=== PATIENT | female | born 1945 | race Caucasian/White ===

== ENCOUNTER 2019-03-22 11:54 | Inpatient (IN) | payer MEDICARE, OTHER ==
[~2019-03-22] VITALS: Ht 147.3 cm; Wt 65.8 kg
[2019-03-22] VITALS (16 sets, daily range): BP systolic 86–142; BP diastolic 31–94
--- NOTE | 2019-03-22 12:13 | ED Chest Pain ---
General Chief Complaint: Chest Pain Stated Complaint: CHEST PAIN Source: patient, EMS Exam Limitations: no limitations History of Present Illness Date Seen by Provider: Mar 22, 2019 Time Seen by Provider: 11:59 Initial Comments Patient presents to ER by EMS from home with chief complaint she just sat down to eat lunch and started having some pressure across her chest. Worse with movement better with lying down. No shortness of breath cough fever or chills. No previous history of coronary disease although years ago Dr. HERRING her primary care doctor sent her to a accounting systems analyst in [place] although she does not remember what it was about and has never had to follow-up. She's having no nausea sweats. She describes the pain is so someone standing on the middle of her chest. It is not radiating anywhere. She has had a hysterectomy and no other abdominal surgeries. She has high blood pressure, smokes and hypercholesterolemia but denies diabetes. On the way to the ER she belched several times and said that that would relieve some of the pressure in her chest. Last night she had a lot of reflux and gas after eating at [employer]. Allergies and Home Medications Allergies Coded Allergies: iodine (Verified Allergy, Unknown, hives, 03/22/19) Patient Home Medication List Home Medication List Reviewed: Yes Review of Systems Review of Systems Constitutional: No chills, No diaphoresis EENTM: No Blurred Vision, No Double Vision Respiratory: Denies Cough, Denies Shortness of Air Cardiovascular: See HPI, Chest Pain; Denies Edema, Denies Palpitations, Denies Syncope Gastrointestinal: See HPI; Denies Abdomen Distended; Abdominal Pain; Denies Constipated, Denies Diarrhea, Denies Nausea Genitourinary: Denies Burning, Denies Discharge Musculoskeletal: No back pain, No joint pain Skin: No pruritus, No rash Psychiatric/Neurological: Denies Headache, Denies Numbness, Denies Paresthesia Past Mnizaav-Tbytvr-Bsarjt Hx Patient Social History Alcohol Use: Denies Use Recreational Drug Use: No Smoking Status: Current Everyday Smoker Type Used: Cigarettes Physical Exam Vital Signs Vital Signs - First Documented 03/22/19 11:55 Temp 97.9 Pulse 84 Resp 20 B/P (MAP) 148/40 (76) Pulse Ox 95 Capillary Refill : Height, Weight, BMI Height: '" Weight: lbs. oz. kg; BMI Method: General Appearance: WD/WN, Anxious, Mild Distress HEENT: PERRL/EOMI, Pharynx Normal, Moist Mucous Membranes Neck: Full Range of Motion, Normal Inspection Respiratory: Chest Non Tender, Lungs Clear, Normal Breath Sounds, No Accessory Muscle Use, No Respiratory Distress Cardiovascular: Regular Rate, Rhythm, No Edema, Normal Peripheral Pulses Gastrointestinal: Normal Bowel Sounds, Soft, Tenderness (tenderness over the right upper quadrant), Other (negative for Colon sign, McBurney's point tenderness or rebound tenderness) Extremity: Normal Capillary Refill, Normal Inspection, No Pedal Edema Neurologic/Psychiatric: Alert, Oriented x3 Progress/Results/Core Measures Results/Orders Lab Results Laboratory Tests Test 03/22/19 12:26 Range/Units White Blood Count 9.7 4.3-11.0 10^3/uL Red Blood Count 3.81 L 4.35-5.85 10^6/uL Hemoglobin 12.3 11.5-16.0 G/DL Hematocrit 37 35-52 % Mean Corpuscular Volume 98 80-99 FL Mean Corpuscular Hemoglobin 32 25-34 PG Mean Corpuscular Hemoglobin Concent 33 32-36 G/DL Red Cell Distribution Width 14.0 10.0-14.5 % Platelet Count 215 130-400 10^3/uL Mean Platelet Volume 9.0 7.4-10.4 FL Neutrophils (%) (Auto) 69 42-75 % Lymphocytes (%) (Auto) 22 12-44 % Monocytes (%) (Auto) 6 0-12 % Eosinophils (%) (Auto) 2 0-10 % Basophils (%) (Auto) 1 0-10 % Neutrophils # (Auto) 6.7 1.8-7.8 X 10^3 Lymphocytes # (Auto) 2.2 1.0-4.0 X 10^3 Monocytes # (Auto) 0.6 0.0-1.0 X 10^3 Eosinophils # (Auto) 0.2 0.0-0.3 10^3/uL Basophils # (Auto) 0.1 0.0-0.1 10^3/uL Prothrombin Time 12.8 12.2-14.7 SEC INR Comment 0.9 0.8-1.4 Activated Partial Thromboplast Time 28 24-35 SEC Sodium Level 140 135-145 MMOL/L Potassium Level 3.7 3.6-5.0 MMOL/L Chloride Level 97 L 98-107 MMOL/L Carbon Dioxide Level 25 21-32 MMOL/L Anion Gap 18 H 5-14 MMOL/L Blood Urea Nitrogen 16 7-18 MG/DL Creatinine 0.90 0.60-1.30 MG/DL Estimat Glomerular Filtration Rate > 60 BUN/Creatinine Ratio 18 Glucose Level 165 H 70-105 MG/DL Calcium Level 10.6 H 8.5-10.1 MG/DL Corrected Calcium 10.4 H 8.5-10.1 MG/DL Magnesium Level 1.4 L 1.6-2.4 MG/DL Total Bilirubin 0.7 0.1-1.0 MG/DL Aspartate Amino Transf (AST/SGOT) 51 H 5-34 U/L Alanine Aminotransferase (ALT/SGPT) 29 0-55 U/L Alkaline Phosphatase 158 H 40-136 U/L Myoglobin < 21.0 10.0-92.0 NG/ML Troponin I < 0.30 <0.30 NG/ML Pro-B-Type Natriuretic Peptide 127.5 H <75.0 PG/ML Total Protein 7.0 6.4-8.2 GM/DL Albumin 4.3 3.2-4.5 GM/DL Lipase 34 8-78 U/L My Orders Orders - HALEIGH GUERRERO Cbc With Automated Diff (03/22/19 12:10) Magnesium (03/22/19 12:10) Chest 1 View Ap/Pa Only (03/22/19 12:10) Ekg Tracing (03/22/19 12:10) Comprehensive Metabolic Panel (03/22/19 12:10) Myoglobin Serum (03/22/19 12:10) Protime With Inr (03/22/19 12:10) Partial Thromboplastin Time (03/22/19 12:10) O2 (03/22/19 12:10) Monitor-Rhythm Ecg Trace Only (03/22/19 12:10) Lipid Panel (03/23/19 06:00) Aspirin Chewable Tablet (Baby Aspirin Ch (03/22/19 12:15) Ed Iv/Invasive Line Start (03/22/19 12:10) Lipase (03/22/19 12:10) Troponin I (03/22/19 12:10) Probnp Fs (03/22/19 12:10) Morphine Injection (Morphine Injection (03/22/19 12:15) Ct Abdomen/Pelvis Wo (03/22/19 12:10) Chest Pa/Lat (2 View) (03/22/19 13:03) Medications Given in ED Current Medications Medications Dose Ordered Sig/Bernard Route Start Time Stop Time Status Last Admin Dose Admin Aspirin 324 mg ONCE ONCE PO 03/22/19 12:15 03/22/19 12:16 DC 03/22/19 12:35 324 MG Morphine Sulfate 2 mg ONCE ONCE IVP 03/22/19 12:15 03/22/19 12:16 DC 03/22/19 12:35 2 MG Vital Signs/I&O 03/22/19 11:55 Temp 97.9 Pulse 84 Resp 20 B/P (MAP) 148/40 (76) Pulse Ox 95 Progress Progress Note : Time: 13:10 Progress Note Ultrasound is not available. Her pain seems to be associated more the right upper quadrant abdomen. We'll give her some pantoprazole and 2 mg morphine. The morphine helped her tremendously and she's no longer in pain. Repeat x-ray two-view based on the shadow seen. She has a lot of gallstone seen on the CT scan without a lot of pericholecystic fluid however because of her iodine allergy we were not able to do a contrasted study. We have discussed follow-up with general surgery. If her troponin is negative she still has a HEART score of 4 points. High risk; 1265% 30-day MACE. Admit to hospital or observation. Further testing indicated. Initial ECG Impression Date: Mar 22, 2019 Initial ECG Impression Time: 11:55 Initial ECG Rate: 73 Initial ECG Rhythm: Normal Sinus Initial ECG Intervals: Normal Initial ECG Impression: Normal Initial ECG Comparisson: No Previous ECG Available Comment Normal sinus rhythm without ST elevation or depression. Diagnostic Imaging Diagonstic Imaging: Xray Plain Films/CT/US/NM/MRI: chest (1v) Comments NAME: CRISTIANAANNA A [facility] REC#: [id number] PT STATUS: REG ER : 1945 PHYSICIAN: HALEIGH GUERRERO MD ADMIT DATE: 03/22/19/ER FS Draft Date of Exam:03/22/19 CHEST 1 VIEW AP/PA ONLY Erect AP chest at 12:12. Indication: Chest pain. There are no prior studies available for comparison. The heart size is within normal limits. The lungs are generally clear. There is no evidence for failure, pneumonia or for pleural effusion. However there is slight increased density in the right suprahilar region. This finding is more likely due to superimposition of pulmonary vessels in this area than to a parenchymal abnormality. Even so, unless there are previous exam available to demonstrate this finding is stable, then followup PA and lateral chest would be recommended for additional study. The mediastinum is not widened. The osseous structures are intact. Impression: There is no evidence for an acute cardiopulmonary abnormality. The area of increased density in the right suprahilar region may well be secondary to superimposition as opposed to a parenchymal abnormality. Recommendations as above. Dictated on workstation # [id number] Dict: 03/22/19 1241 Trans: 03/22/19 1254 [facility] [id number] Interpreted by: SONALI MALIK MD Electronically signed by: Reviewed: Reviewed by Fl Diagonstic Imaging: Xray Plain Films/CT/US/NM/MRI: chest (2v) Comments NAME: ANNA ZENDEJAS [facility] REC#: [id number] PT STATUS: REG ER : 1945 PHYSICIAN: HALEIGH GUERRERO MD ADMIT DATE: 03/22/19/ER FS Signed Date of Exam:03/22/19 CHEST PA/LAT (2 VIEW) PATIENT HISTORY: Chest pain. TECHNIQUE: Two views of the chest. COMPARISON: 03/22/2019. FINDINGS: The lung volumes are normal. No focal consolidation is seen. Previously noted opacity in the right suprahilar region is not visualized on the repeat exam, likely representing superimposed soft tissues. No large pleural effusion or pneumothorax is seen. The cardiomediastinal silhouette is normal in size and contour. There is calcified aortic atherosclerotic plaque. No acute osseous abnormality is seen. IMPRESSION: 1. No acute pleuroparenchymal process. Previously noted opacity likely represented superimposed soft tissues. Dictated by: Dictated on workstation # [id number] Dict: 03/22/19 1320 Trans: 03/22/19 1328 [facility] [id number] Interpreted by: FAIZAN MONTOYA DO Electronically signed by: FAIZAN MONTOYA DO 03/22/19 1328 Reviewed: Reviewed by Me Diagonstic Imaging: CT (without IV contrast) Plain Films/CT/US/NM/MRI: abdomen, pelvis Comments NAME: ANNA ZENDEJAS [facility] REC#: [id number] PT STATUS: REG ER : 1945 PHYSICIAN: HALEIGH GUERRERO MD ADMIT DATE: 03/22/19/ER FS Signed Date of Exam:03/22/19 CT ABDOMEN/PELVIS WO PROCEDURE: CT abdomen and pelvis without contrast. TECHNIQUE: Multiple contiguous axial images were obtained through the abdomen and pelvis without the use of intravenous contrast. Auto Exposure Controls were utilized during the CT exam to meet ALARA standards for radiation dose reduction. INDICATION: Sudden epigastric pain after a meal. No discomfort at this time. COMPARISON: None. FINDINGS: The heart is unremarkable. The included lung bases are clear. Multiple gallstones are visualized within the gallbladder lumen. There is mild thickening of the gallbladder wall. No pericholecystic fluid is seen. There is dilatation of the common bile duct measuring 1.0 cm at the roberto hepatis. A radiopaque focus is seen in the distal common bile duct measuring 0.6 cm, likely representing choledocholithiasis. There is proximal intrahepatic biliary dilatation. Multiple renal cysts are visualized bilaterally. No evidence of hydronephrosis or obstruction of renal calculi. The spleen, pancreas, and adrenal glands have a normal noncontrast CT appearance. There is no pathologically enlarged mesenteric or retroperitoneal adenopathy. The bowel loops are nondilated. Scattered diverticuli are seen in the colon without evidence of acute diverticulitis. There is no free fluid or free air. The osseous structures are age-appropriate. There is calcified aortic and iliac atherosclerotic plaque. The bladder has a normal appearance. There is no free air, loculated collection, or adenopathy in the pelvis. IMPRESSION: 1. Cholelithiasis and choledocholithiasis with dilatation of the main common bile duct and prominence of the proximal intrahepatic biliary ducts. Recommend correlation with patient's symptoms and physical exam for acute cholecystitis and surgical consultation. Dictated by: Dictated on workstation # [id number] Dict: 03/22/19 1312 Trans: 03/22/19 1328 [facility] [id number] Interpreted by: FAIZAN MONTOYA DO Electronically signed by: FAIZAN MONTOYA DO 03/22/19 1328 Reviewed: Reviewed by Me Departure Communication (Admissions) Time/Spoke to Admitting Phy: 13:48 Dr Anaya; discussed case lab imaging EKG and he agrees with some Zosyn and admitting the patient. Time/Spoke to Consulting Phy: 13:39 Discussed the case with general surgery, Dr. Roberts and we discussed ERCP first versus surgery. Her pain is gone after 2 mg morphine and her bilirubin is 0.7. He thinks it would be reasonable to do the cholecystectomy today and then set her up for ERCP following. Impression Primary Impression: Choledocholithiasis with acute cholecystitis with obstruction Additional Impression: Chest pressure Disposition: ADMITTED INPATIENT Condition: Stable Admissions Decision to Admit Reason: Admit from ER (General) Decision to Admit/Date: Mar 22, 2019 Time/Decision to Admit Time: 13:40 Departure-Patient Inst. Referrals: JESSICA HERRING DO (PCP/Family) Primary Care Physician HALEIGH GUERRERO Mar 22, 2019 12:13
[2019-03-22] MEDS ORDERED: morphine INJ 10 MG/ML 1ML (SYR OR VIAL) IVP ONE (12:15)
[2019-03-22] MEDS ORDERED: ASPIRIN 81 MG CHEW (CHILDREN'S ASA) PO ONE (12:15)
[2019-03-22 12:36] LABS: BASOPHILS # (AUTO) 0.1 10^3/uL (0.0-0.1); BASOPHILS % (AUTO) 1 % (0-10); EOSINOPHILS # (AUTO) 0.2 10^3/uL (0.0-0.3); EOSINOPHILS % (AUTO) 2 % (0-10); HEMATOCRIT 37 % (35-52); HEMOGLOBIN 12.3 G/DL (11.5-16.0); LYMPHOCYTES # (AUTO) 2.2 X 10^3 (1.0-4.0); LYMPHOCYTES % (AUTO) 22 % (12-44); MEAN CORPUSCULAR HEMOGLOBIN 32 PG (25-34); MEAN CORPUSCULAR HGB CONC 33 G/DL (32-36); MEAN CORPUSCULAR VOLUME 98 FL (80-99); MONOCYTES # (AUTO) 0.6 X 10^3 (0.0-1.0); MONOCYTES % (AUTO) 6 % (0-12); NEUTROPHILS # (AUTO) 6.7 X 10^3 (1.8-7.8); NEUTROPHILS % (AUTO) 69 % (42-75); PLATELET COUNT 215 10^3/uL (130-400); WHITE BLOOD COUNT 9.7 10^3/uL (4.3-11.0)
--- NOTE | 2019-03-22 12:55 | Diagnostic Imaging Report ---
Erect AP chest at 12:12. Indication: Chest pain. There are no prior studies available for comparison. The heart size is within normal limits. The lungs are generally clear. There is no evidence for failure, pneumonia or for pleural effusion. However there is slight increased density in the right suprahilar region. This finding is more likely due to superimposition of pulmonary vessels in this area than to a parenchymal abnormality. Even so, unless there are previous exam available to demonstrate this finding is stable, then followup PA and lateral chest would be recommended for additional study. The mediastinum is not widened. The osseous structures are intact. Impression: There is no evidence for an acute cardiopulmonary abnormality. The area of increased density in the right suprahilar region may well be secondary to superimposition as opposed to a parenchymal abnormality. Recommendations as above. Dictated by: Dictated on workstation # [id number]
[2019-03-22 13:02] LABS: INR 0.9 (0.8-1.4); PROTHROMBIN TIME PATIENT 12.8 SEC (12.2-14.7)
[2019-03-22 13:03] LABS: BILIRUBIN,TOTAL 0.7 MG/DL (0.1-1.0); BUN/CREATININE RATIO 18; CALCIUM 10.6 MG/DL (8.5-10.1); CARBON DIOXIDE 25 MMOL/L (21-32); CHLORIDE 97 MMOL/L (98-107); GFR ESTIMATED > 60; GLUCOSE 165 MG/DL (70-105); MAGNESIUM 1.4 MG/DL (1.6-2.4); POTASSIUM 3.7 MMOL/L (3.6-5.0); SODIUM 140 MMOL/L (135-145)
[2019-03-22 13:04] LABS: ALANINE AMINOTRANSFERASE 29 U/L (0-55); ALBUMIN 4.3 GM/DL (3.2-4.5); ALKALINE PHOSPHATASE 158 U/L (40-136); LIPASE 34 U/L (8-78)
--- NOTE | 2019-03-22 13:24 | Diagnostic Imaging Report ---
PROCEDURE: CT abdomen and pelvis without contrast. TECHNIQUE: Multiple contiguous axial images were obtained through the abdomen and pelvis without the use of intravenous contrast. Auto Exposure Controls were utilized during the CT exam to meet ALARA standards for radiation dose reduction. INDICATION: Sudden epigastric pain after a meal. No discomfort at this time. COMPARISON: None. FINDINGS: The heart is unremarkable. The included lung bases are clear. Multiple gallstones are visualized within the gallbladder lumen. There is mild thickening of the gallbladder wall. No pericholecystic fluid is seen. There is dilatation of the common bile duct measuring 1.0 cm at the roberto hepatis. A radiopaque focus is seen in the distal common bile duct measuring 0.6 cm, likely representing choledocholithiasis. There is proximal intrahepatic biliary dilatation. Multiple renal cysts are visualized bilaterally. No evidence of hydronephrosis or obstruction of renal calculi. The spleen, pancreas, and adrenal glands have a normal noncontrast CT appearance. There is no pathologically enlarged mesenteric or retroperitoneal adenopathy. The bowel loops are nondilated. Scattered diverticuli are seen in the colon without evidence of acute diverticulitis. There is no free fluid or free air. The osseous structures are age-appropriate. There is calcified aortic and iliac atherosclerotic plaque. The bladder has a normal appearance. There is no free air, loculated collection, or adenopathy in the pelvis. IMPRESSION: 1. Cholelithiasis and choledocholithiasis with dilatation of the main common bile duct and prominence of the proximal intrahepatic biliary ducts. Recommend correlation with patient's symptoms and physical exam for acute cholecystitis and surgical consultation. Dictated by: Dictated on workstation # [id number]
--- NOTE | 2019-03-22 13:26 | Diagnostic Imaging Report ---
PATIENT HISTORY: Chest pain. TECHNIQUE: Two views of the chest. COMPARISON: 03/22/2019. FINDINGS: The lung volumes are normal. No focal consolidation is seen. Previously noted opacity in the right suprahilar region is not visualized on the repeat exam, likely representing superimposed soft tissues. No large pleural effusion or pneumothorax is seen. The cardiomediastinal silhouette is normal in size and contour. There is calcified aortic atherosclerotic plaque. No acute osseous abnormality is seen. IMPRESSION: 1. No acute pleuroparenchymal process. Previously noted opacity likely represented superimposed soft tissues. Dictated by: Dictated on workstation # [id number]
[2019-03-22] MEDS ORDERED: PIPERACILLIN/TAZO 4.5 GM VIAL (ZOSYN) IV ONE ×2 (14:00→23:53)
[2019-03-22] MEDS ORDERED: NS (IVPB) 100 ML ONE ×2 (14:00→23:55)
[2019-03-22] MEDS ORDERED: PIPERACILLIN/TAZOBACTAM (BULK) 4.5 GM in NS (IVPB) 100 ML IV ONE (14:00)
[2019-03-22] MEDS ORDERED: PANTOPRAZOLE 40 MG (PROTONIX) VIAL IV ONE (14:15)
--- NOTE | 2019-03-22 14:48 | NUR ---
Received report from Marilynn CASAS ([facility])
--- NOTE | 2019-03-22 15:08 | NUR ---
patient transferred at this time to [facility] via private vehicle.
[2019-03-22] MEDS ORDERED: IOPAMIDOL 61% 30 ML (ISOVUE 300) VIAL IV ONE (15:56)
[2019-03-22] MEDS ORDERED: BUP/EPI 0.25% 1:200,000 (MARCAINE) 10 ML VIAL IJ ONE (15:56)
--- NOTE | 2019-03-22 16:00 | NUR ---
Pt arrived via private vehicle as a direct admit, pt is alert and oriented x 4, c/o upper abdominal pain with n/v that is intermittent. Pt arrived with a SL in R) hand, 20g. [employer] and Dr. Roberts here on arrival.
[2019-03-22] MEDS ORDERED: fentaNYL INJECTION 100 MCG/2 ML AMP ONE ×3 (16:07→18:05)
[2019-03-22] MEDS ORDERED: ONDANSETRON 4 MG/2 ML (SDV) Z0FRAN ONE ×2 (16:07→16:32)
[2019-03-22] MEDS ORDERED: LIDOCAINE PF 2% 5 ML (XYLOCAINE) VIAL ONE (16:07)
[2019-03-22] MEDS ORDERED: ROCURONIUM 10 MG/ML 5 ML SYRINGE IV ONE (16:07)
[2019-03-22] MEDS ORDERED: proPOfol 200 MG/20 ML (DIPRIVAN) VIAL IV ONE (16:07)
[2019-03-22] MEDS ORDERED: MIDAZOLAM 2 MG/2 ML (VERSED) VIAL ONE (16:08)
[2019-03-22] MEDS ORDERED: DEXAMETHASONE 10 MG/ML (DECADRON) 1 ML VIAL ONE (16:32)
[2019-03-22] MEDS ORDERED: GLYCOPYRROLATE 0.2 MG/ML (ROBINUL) 2 ML VIAL ONE (16:32)
[2019-03-22] MEDS ORDERED: NEOSTIGMINE 3 MG/3 ML VIAL ONE (16:32)
--- NOTE | 2019-03-22 16:36 | Consultation - Surgery ---
History of Present Illness History of Present Illness Patient Consulted On(rosalia/time) 03/22/19 16:31 Time Seen by Provider: 16:09 History of Present Illness Surgery asked to consult regarding Cholelithiasis/Cholecystitis with Choledochalithiasis. HPI per ED: Patient presents to ER by EMS from home with chief complaint she just sat down to eat lunch and started having some pressure across her chest. Worse with movement better with lying down. No shortness of breath cough fever or chills. No previous history of coronary disease although years ago Dr. 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 She's having no nausea sweats. She describes the pain is so someone standing on the middle of her chest. It is not radiating anywhere. She has had a hysterectomy and no other abdominal surgeries. She has high blood pressure, smo kes and hypercholesterolemia but denies diabetes. On the way to the ER she belched several times and said that that would relieve some of the pressure in her chest. Last night she had a lot of reflux and gas after eating at [employer]. When I spoke with pt she described a sharp pain under ribs "on both sides". She said her sister also had her GB out. Allergies and Home Medications Allergies Coded Allergies: iodine (Verified Allergy, Unknown, hives, 03/22/19) Patient Home Medication List Home Medication List Reviewed: Yes Past Ifcqhin-Vehjwg-Ivrroj Hx Patient Social History Alcohol Use: Denies Use Recreational Drug Use: No Smoking Status: Current Everyday Smoker Type Used: Cigarettes 2nd Hand Smoke Exposure: Yes Recent Foreign Travel: No Contact w/Someone Who Travel: No Recent Infectious Disease Expo: No Recent Hopitalizations: No Seasonal Allergies Seasonal Allergies: No Surgeries History of Surgeries: Yes Surgeries: Hysterectomy, Tonsillectomy Respiratory History of Respiratory Disorde: No Cardiovascular History of Cardiac Disorders: Yes Cardiac Disorders: High Cholesterol, Hypertension Neurological History of Neurological Disord: No Reproductive System : No Genitourinary History of Genitourinary Disor: No Gastrointestinal History of Gastrointestinal Di: No Musculoskeletal History of Musculoskeletal Dis: No Endocrine History of Endocrine Disorders: No HEENT History of HEENT Disorders: No Cancer History of Cancer: No Psychosocial History of Psychiatric Problem: No Integumentary History of Skin or Integumenta: No Family Medical History Significant Family History: Vascular Disease (Mother had "blood clot in heart"), Other Conditions/Hx (sister GB disease) Review of Systems-General Constitutional: No chills, No diaphoresis; weakness EENTM: No blurred vision, No double vision, No mouth pain, No mouth swelling, No epistaxis Respiratory: No cough, No dyspnea on exertion Cardiovascular: chest pain; No palpitations Gastrointestinal: abdominal pain (RUQ); No diarrhea; nausea; No vomiting Genitourinary: No dysuria, No frequency, No hematuria Musculoskeletal: joint pain, joint swelling, muscle pain, muscle stiffness Skin: No change in color, No change in hair/nails Psychiatric/Neurological: Denies Anxiety, Denies Depressed, Denies Seizure, Denies Tremors Other pt denies any hx of abnormal bleeding or bruising Physical Exam-General Problems Physical Exam Vital Signs Vital Signs - First Documented 03/22/19 03/22/19 11:55 16:14 Temp 97.9 Pulse 84 Resp 20 B/P (MAP) 148/40 (76) Pulse Ox 95 O2 Delivery Room Air Capillary Refill : Less Than 3 Seconds General Appearance: WD/WN, mild distress, thin Eyes: Bilateral Eye PERRL, Bilateral Eye EOMI HEENT: pharynx normal; No scleral icterus (R), No scleral icterus (L) Neck: non-tender, full range of motion, supple Respiratory: chest non-tender, lungs clear, normal breath sounds, no respiratory distress, no accessory muscle use Cardiovascular: regular rate, rhythm, no edema, no murmur Gastrointestinal: normal bowel sounds, soft, no organomegaly, no pulsatile mass, tenderness (RUQ with palpation), hernia (small umbilical) Back: no CVA tenderness, no vertebral tenderness Extremities: non-tender, no pedal edema, no calf tenderness 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, no motor/sensory deficits, alert, normal mood/affect, oriented x 3 Skin: normal color, warm/dry Lymphatic: no adenopathy (neck, axilla or groin) Data Review Labs Laboratory Tests 03/22/19 12:26: White Blood Count 9.7, Red Blood Count 3.81L, Hemoglobin 12.3, Hematocrit 37, Mean Corpuscular Volume 98, Mean Corpuscular Hemoglobin 32, Mean Corpuscular Hemoglobin Concent 33, Red Cell Distribution Width 14.0, Platelet Count 215, Mean Platelet Volume 9.0, Neutrophils (%) (Auto) 69, Lymphocytes (%) (Auto) 22, Monocytes (%) (Auto) 6, Eosinophils (%) (Auto) 2, Basophils (%) (Auto) 1, Neutrophils # (Auto) 6.7, Lymphocytes # (Auto) 2.2, Monocytes # (Auto) 0.6, Eosinophils # (Auto) 0.2, Basophils # (Auto) 0.1, Prothrombin Time 12.8, INR Comment 0.9, Activated Partial Thromboplast Time 28, Sodium Level 140, Potassium Level 3.7, Chloride Level 97L, Carbon Dioxide Level 25, Anion Gap 18H, Blood Urea Nitrogen 16, Creatinine 0.90, Estimat Glomerular Filtration Rate > 60, BUN/Creatinine Ratio 18, Glucose Level 165H, Calcium Level 10.6H, Corrected Calcium 10.4H, Magnesium Level 1.4L, Total Bilirubin 0.7, Aspartate Amino Transf (AST/SGOT) 51H, Alanine Aminotransferase (ALT/SGPT) 29, Alkaline Phosphatase 158H, Myoglobin < 21.0, Troponin I < 0.30, Pro-B-Type Natriuretic Peptide 127.5H , Total Protein 7.0, Albumin 4.3, Lipase 34 Assessment/Plan Assessment/Plan Assessment/Plan Acute on Chronic Cholecystitis with Cholelithiasis and Choledochalithiasis HTN Plan is to take pt to OR for Lap sabrina with IOC, may be able to push stone out or flush it out. She may be able to be sent for outpt ERCP, will depend on cholangiogram. Discussed risks and complications with pt not limited to pain, bleeding, infection, scar, damage to bowel or bile duct and need for further procedure. Will get consent, continue Zosyn as routine ABX, npo, IV fluids and pain control. EASTON HILL DO Mar 22, 2019 16:36
[2019-03-22] MEDS ORDERED: ACETAMINOPHEN 325 MG TABLET PO PRN (17:00)
[2019-03-22] MEDS ORDERED: POLYETHYLENE GLYCOL 17 GM (MIRALAX) PACK PO PRN (17:00)
[2019-03-22] MEDS ORDERED: ONDANSETRON 4 MG (ZOFRAN) ORAL DISSOLVE TAB PO PRN (17:00)
[2019-03-22] MEDS ORDERED: ONDANSETRON 4 MG/2 ML (SDV) Z0FRAN IVP PRN ×3 (17:00→19:15)
[2019-03-22] MEDS ORDERED: morphine INJ 4 MG/ML 1 ML (VIAL/SYRINGE) IVP PRN (17:00)
[2019-03-22] MEDS ORDERED: MELATONIN 3 MG TABLET PO PRN (17:00)
--- NOTE | 2019-03-22 17:00 | NUR ---
Consent for lap sabrina signed and witnessed, pt taken by bed to OR by OR staff.
[2019-03-22] MEDS ORDERED: NICOTINE 14 MG (NICODERM) PATCH TD ONE ×2 (17:15→19:42)
[2019-03-22] MEDS ORDERED: LACTATED RINGERS 1,000 ML IV PRN (18:05)
[2019-03-22] MEDS ORDERED: HYDROmorphone 2 MG/ML VIAL (DILAUDID) ONE (18:31)
[2019-03-22] MEDS ORDERED: SEVOFLURANE (ULTANE) 15 ML INHAL SOLN ONE ×6 (18:48)
--- NOTE | 2019-03-22 18:49 | Diagnostic Imaging Report ---
EXAMINATION: Intraoperative cholangiogram. INDICATION: Cholecystectomy. FINDINGS: 34 seconds of fluoroscopy was utilized during intraoperative cholangiogram during cholecystectomy. There is an apparent filling defect demonstrated within the distal common bile duct. There is, however, spillage of contrast into the duodenum without significant ductal dilatation. IMPRESSION: Filling defect within the distal common bile duct just above the level of the ampulla. This does not appear to be completely obstructive as there is spillage of contrast into the duodenum. This does, however, appear compatible with a residual distal common bile duct stone and choledocholithiasis. Dictated by: Dictated on workstation # [id number]
--- NOTE | 2019-03-22 18:54 | Progress Note-Post Operative ---
Post-Operative Progess Note Surgeon (s)/Dressage Instructor (s) Surgeon EASTON HILL DO Dressage Instructor: Yissel ritter Pre-Operative Diagnosis Acute Selene/selene with Choledochalithiasis Post-Operative Diagnosis same Procedure & Operative Findings Date of Procedure 03/22/19 Procedure Performed/Findings lap selene with IOC Anesthesia Type GET Estimated Blood Loss Estimated blood loss (mL): scant Specimens/Packing Specimens Removed GB and contents EASTON HILL DO Mar 22, 2019 18:54
[2019-03-22] MEDS ORDERED: HYDROcodone/APAP 5 MG/325 MG (LORTAB) TAB PO PRN (19:00)
[2019-03-22] MEDS: LACTATED RINGERS 1,000 ML IV SCH (19:07)
[2019-03-22] MEDS ORDERED: MEPERIDINE (DEMEROL) INJ 50 MG/ML IVP ONE (19:15)
[2019-03-22] MEDS ORDERED: fentaNYL INJECTION 100 MCG/2 ML AMP IVP ONE (19:15)
--- NOTE | 2019-03-22 20:29 | OPERATIVE REPORT ---
DATE OF SERVICE: 03/22/2019 PREOPERATIVE DIAGNOSES: Acute cholecystitis with cholelithiasis and choledocholithiasis. POSTOPERATIVE DIAGNOSES: Acute cholecystitis with cholelithiasis and choledocholithiasis. PROCEDURES: Laparoscopic cholecystectomy, intraoperative cholangiogram. SURGEON: Shilo Roberts DO TOUR LEADER: Yissel Ayon, 3. ANESTHESIA: General endotracheal tube. SPECIMEN: Gallbladder and contents. BLOOD LOSS: Scant. FLUIDS: Per anesthesia. POSTOPERATIVE CONDITION: Stable. INDICATION FOR PROCEDURE: The patient is a 73-year-old female, who has been having some upper abdominal pain. She thought it was chest pain and went in to the ER for workup and found that workup of the cardiac was negative and then CAT scan showed multiple stones in the gallbladder, dilated duct and stones in the common bile duct as well. FINDINGS: The patient had edema around the gallbladder as well as inflammation and still stones in the common bile duct as well as some of the adhesions at the midline from previous procedure. PROCEDURE NOTE: After informed consent was obtained, the patient was brought to the operating room, placed on the table in supine position. She was sterilely prepped and draped in normal fashion. Local lidocaine was used to infiltrate the skin above the umbilicus. I made the incision with #11 blade, carried down through the skin into subcutaneous tissue, deepened down to subcutaneous tissue with Bovie electrocautery down to the fascia. Fascia was incised with Bovie electrocautery and bluntly entered the abdomen, swept a finger around, placed 0 Vicryl [id number] suture and placed limited trocar port under direct visualization, created pneumoperitoneum, then placed 3 more ports in normal fashion using local lidocaine, 11 blade for stab incision and Versed system, all done under direct visualization, one subxiphoid and 2 in the right upper quadrant. The patient was then placed in reverse Trendelenburg and rotated left, able to grasp the gallbladder at the fundus, taken in superior direction and then grasped down around Dahlia's pouch and started dissecting out the cystic duct and cystic artery. There was a lot of edema around the gallbladder, some adhesions, very inflamed around this area. Encountered a very large lymph node of [place]. Finally, able to continue working slowly and finally able to get around the cystic duct. It was actually very large and the cystic artery, placed two clips proximally and one distally on the cystic artery and then one distally on the cystic duct. Cut the cystic duct usp through with Metzenbaum scissors. Placed a cholangiogram catheter, shot a cholangiogram. Good spillage of dye, it was actually down the cystic duct, it was very dilated and into the common bile duct and then it went down. It looked like it went around some stones. It did go into the small intestine as well as going up into the common hepatic and right and left hepatics, tried to flush with more saline and shot another cholangiogram, but it appeared like the stones were still in the common bile duct, it did not move out. At this point, then removed the cholangiogram catheter, placed two clips proximally and cut the cystic duct usp through with Metzenbaum scissors as well as cut the cystic artery. I then started taking the gallbladder from bed of liver with L-hook cautery, which was completely removed, placed a bag in the abdomen, placed the gallbladder in a bag and then removed this through the supraumbilical incision. Placed the port back in the abdomen, copiously irrigated with normal saline, suctioned this out. There was no bleeding from the bed of the liver. At this point, then placed the patient supine. She had been reverse Trendelenburg and rotated left and removed all ports under direct visualization, allowed pneumoperitoneum to escape. Closed the supraumbilical incision, closing the fascia first with 0 Vicryl suture previously placed. Copiously irrigated all incisions with normal saline and closed the supraumbilical incision with three interrupted 4-0 undyed Monocryl subcuticular stitches, closed the three 5 mm incisions with simple interrupted 4-0 undyed Monocryl subcuticular stitch. Area was cleaned and dried. Dermabond was placed as well as Band-Aid and pressure dressing. The patient then transferred to recovery room in stable condition. Sponge, instrument and needle counts were correct at the end of the case. Job ID: [id number] DocumentID: [id number] Dictated Date: 03/22/2019 19:12:58 Embedded Software Test Engineer Date: 03/22/2019 20:28:44 Dictated By: SHILO ROBERTS DO
[2019-03-22] MEDS: MAGNESIUM 1 GM/100 ML IVPB 100 ML IV SCH ×3 (21:17→23:30)
[2019-03-22] MEDS: NS W/KCL 20 MEQ/L 1,000 ML IV SCH ×2 (21:18→23:56)
[2019-03-22] MEDS: DOCUSATE SODIUM 100 MG (COLACE) CAP PO SCH (22:00)
[2019-03-22] MEDS: SENNA W/DOCUSATE (SENOKOT S) TABLET PO SCH (22:00)
[2019-03-22] MEDS ORDERED: LACTATED RINGERS 500 ML IV SCH (22:30)
[2019-03-23] VITALS (13 sets, daily range): BP systolic 82–154; BP diastolic 38–131
[2019-03-23] MEDS: PIPERACILLIN/TAZOBACTAM (BULK) 4.5 GM in NS (IVPB) 100 ML IV SCH ×2 (00:09→08:58)
[2019-03-23] MEDS: MAGNESIUM 1 GM/100 ML IVPB 100 ML IV SCH (00:45)
[2019-03-23] MEDS ORDERED: LACTATED RINGERS 500 ML IV SCH (02:00)
[2019-03-23 04:11] LABS: BASOPHILS % (AUTO) 0 % (0-10); EOSINOPHILS % (AUTO) 0 % (0-10); HEMATOCRIT 35 % (35-52); HEMOGLOBIN 11.4 G/DL (11.5-16.0); LYMPHOCYTES # (AUTO) 0.5 X 10^3 (1.0-4.0); LYMPHOCYTES % (AUTO) 3 % (12-44); MEAN CORPUSCULAR HEMOGLOBIN 32 PG (25-34); MEAN CORPUSCULAR HGB CONC 32 G/DL (32-36); MEAN CORPUSCULAR VOLUME 99 FL (80-99); MEAN PLATELET VOLUME 9.6 FL (7.4-10.4); MONOCYTES # (AUTO) 0.4 X 10^3 (0.0-1.0); MONOCYTES % (AUTO) 3 % (0-12); NEUTROPHILS # (AUTO) 14.2 X 10^3 (1.8-7.8); NEUTROPHILS % (AUTO) 94 % (42-75); PLATELET COUNT 182 10^3/uL (130-400); RED CELL DISTRIBUTION WIDTH 14.4 % (10.0-14.5); WHITE BLOOD COUNT 15.1 10^3/uL (4.3-11.0)
[2019-03-23] MEDS: LACTATED RINGERS 1,000 ML IV SCH ×2 (04:22→10:55)
[2019-03-23 04:30] LABS: ALBUMIN 3.6 GM/DL (3.2-4.5); BILIRUBIN,TOTAL 1.9 MG/DL (0.1-1.0); CALCIUM 9.1 MG/DL (8.5-10.1); CREATININE SERUM 1.1 MG/DL (0.60-1.30); PHOSPHORUS 3.8 MG/DL (2.3-4.7); POTASSIUM 4.7 MMOL/L (3.6-5.0); TOTAL PROTEIN 6.1 GM/DL (6.4-8.2)
[2019-03-23 04:50] LABS: BAND NEUTROPHILS 8 %; LYMPHOCYTES % (MANUAL) 2 %; MONOCYTES % (MANUAL) 3 %; NEUTROPHILS % (MANUAL) 87 %; RBC MORPH NORMAL
[2019-03-23] MEDS ORDERED: MAGNESIUM 1 GM/100 ML IVPB 100 ML IV SCH (06:00)
[2019-03-23] MEDS ORDERED: KCL 20 MEQ TAB (K-DUR) PO SCH (06:00)
[2019-03-23] MEDS ORDERED: POTASSIUM CL 10MEQ/50ML IVPB 50 ML IV SCH (06:00)
--- NOTE | 2019-03-23 06:02 | Pulmonary Consultation ---
History of Present Illness History of Present Illness Date of Consultation 03/23/19 05:57 Date of Admission Allergies and Home Medications Allergies Coded Allergies: iodine (Verified Allergy, Unknown, hives, 03/22/19) Past Ixpqvsx-Mibuqw-Bcoiiz Hx Patient Social History Alcohol Use: Denies Use Recreational Drug Use: No Smoking Status: Current Everyday Smoker Type Used: Cigarettes 2nd Hand Smoke Exposure: Yes Recent Foreign Travel: No Contact w/Someone Who Travel: No Recent Infectious Disease Expo: No Recent Hopitalizations: No Physical Abuse: No Sexual Abuse: No Mistreated: No Fear: No Immunizations Up To Date Date of Pneumonia Vaccine: Mar 22, 2018 Seasonal Allergies Seasonal Allergies: No Past Medical History Surgeries: Yes Hysterectomy, Tonsillectomy Respiratory: No Cardiac: No High Cholesterol, Hypertension Neurological: No : No Genitourinary: No Gastrointestinal: No Musculoskeletal: No Endocrine: No HEENT: Yes Hearing Impairment: Hard of Hearing Cancer: No Psychosocial: No Integumentary: No Blood Disorders: No Family Medical History Coronary thrombosis 19 MOTHER G8 SISTER Vascular Disease (Mother had "blood clot in heart"), Other Conditions/Hx (sister GB disease) Sepsis Event Evaluation Height, Weight, BMI Height: 4'10.00" Weight: 132lbs. 2.0oz. 59.456403fq; 27.6 BMI Method:Stated Exam Exam Vital Signs Date Time Temp Pulse Resp B/P (MAP) Pulse Ox O2 Delivery O2 Flow Rate FiO2 03/23/19 05:00 71 18 104/47 (66) 95 OxyMask 6.00 03/23/19 04:00 OxyMask 6.00 03/23/19 04:00 78 12 91/53 (66) 96 OxyMask 6.00 03/23/19 03:00 95 15 130/64 (86) 96 OxyMask 6.00 03/23/19 02:00 83 21 92/43 (59) 96 OxyMask 6.00 03/23/19 01:00 76 12 82/41 (55) 96 OxyMask 6.00 03/23/19 01:00 78 03/23/19 00:11 98.6 03/23/19 00:00 OxyMask 6.00 03/23/19 00:00 84 12 83/38 (53) 96 OxyMask 6.00 03/22/19 23:00 84 12 99/41 (60) 96 OxyMask 6.00 03/22/19 22:30 OxyMask 5.00 03/22/19 22:00 82 12 86/49 (61) 96 OxyMask 6.00 03/22/19 21:00 97 14 86/49 (61) 93 OxyMask 10.00 03/22/19 21:00 98.1 03/22/19 21:00 97 14 86/32 (50) 93 OxyMask 6.00 03/22/19 20:45 OxyMask 10.00 03/22/19 20:45 98.7 18 93 OxyMask 6 03/22/19 20:45 OxyMask 6 03/22/19 20:45 96 OxyMask 10.00 03/22/19 20:40 18 94 OxyMask 6 03/22/19 20:35 OxyMask 6 03/22/19 20:30 18 93 OxyMask 6 03/22/19 20:20 OxyMask 6 03/22/19 20:20 18 93 OxyMask 6 03/22/19 20:10 18 94 Nasal Cannula 3 03/22/19 20:05 OxyMask 6 03/22/19 20:00 118 19 142/57 (85) 89 OxyMask 6.00 03/22/19 20:00 118 19 142/53 (82) 89 OxyMask 10.00 03/22/19 20:00 22 94 OxyMask 6 03/22/19 19:50 OxyMask 6 03/22/19 19:50 22 94 OxyMask 6 03/22/19 19:40 20 94 OxyMask 6 03/22/19 19:40 OxyMask 6 03/22/19 19:32 OxyMask 6 03/22/19 19:30 22 95 OxyMask 6 03/22/19 19:25 OxyMask 6 03/22/19 19:20 18 97 OxyMask 6 03/22/19 19:15 OxyMask 6 03/22/19 19:13 18 97 OxyMask 6 03/22/19 19:06 OxyMask 6 03/22/19 19:06 97.5 12 100 OxyMask 6 03/22/19 19:00 89 03/22/19 16:14 99.0 102 21 138/68 95 Room Air 03/22/19 16:00 Room Air 03/22/19 14:51 98.2 94 14 141/57 (85) 95 03/22/19 11:55 97.9 84 20 148/40 (76) 95 I & O 03/23/19 07:00 Intake Total 3520 ml Output Total 225 ml Balance 3295 ml Height & Weight Height: 4'10.00" Weight: 132lbs. 2.0oz. 59.510215so; 27.6 BMI Method:Stated General Appearance: WD/WN, Anxious, Mild Distress HEENT: PERRL/EOMI, Pharynx Normal, Moist Mucous Membranes Neck: Full Range of Motion, Normal Inspection Respiratory: Chest Non Tender, Lungs Clear, Normal Breath Sounds, No Accessory Muscle Use, No Respiratory Distress Cardiovascular: Regular Rate, Rhythm, No Edema, Normal Peripheral Pulses Capillary Refill: Less Than 3 Seconds Gastrointestinal: normal bowel sounds, soft, no organomegaly, no pulsatile mass, tenderness (RUQ with palpation), hernia (small umbilical) Extremity: Normal Capillary Refill, Normal Inspection, No Pedal Edema Neurologic/Psychiatric: Alert, Oriented x3 Results Lab Laboratory Tests 03/22/19 12:26 03/23/19 03:17 Assessment/Plan Assessment/Plan Choledocholithiasis with acute cholecystitis s/p cholecystectomy COPDAE with Hypoxia -Start Solumedrol -Start Duoneb Q 4 -Check ABG -CXR reviewed Tobacco use -Education Atelectasis -IS EMILY GARCES DO Mar 23, 2019 06:02
[2019-03-23] MEDS: NS W/KCL 20 MEQ/L 1,000 ML IV SCH (06:29)
[2019-03-23] MEDS ORDERED: PANTOPRAZOLE 40 MG (PROTONIX) VIAL IVP SCH (07:00)
--- NOTE | 2019-03-23 07:30 | Diagnostic Imaging Report ---
Indication: Postop gallbladder surgery. Comparison: 03/22/2019 FIndings: Single view of the chest demonstrates minimal basilar atelectasis. Heart is stable. No pulmonary edema or effusion is seen. There is no pneumothorax. Osseous structures stable. Impression: Minimal basilar atelectasis. Dictated by: Dictated on workstation # [id number]
--- NOTE | 2019-03-23 08:15 | NUR ---
REPORT RECEIVED AND PT ASSESSED. PT LAYING IN BED IN NAD. SHE IS A/OX4. NO COMPLAINTS, DENIES PAIN. CONTINUING TO MONITOR.
[2019-03-23] MEDS ORDERED: NICOTINE 14 MG (NICODERM) PATCH TD SCH (09:00)
[2019-03-23] MEDS: SENNA W/DOCUSATE (SENOKOT S) TABLET PO SCH (09:00)
[2019-03-23] MEDS: DOCUSATE SODIUM 100 MG (COLACE) CAP PO SCH (09:00)
--- NOTE | 2019-03-23 09:00 | NUR ---
FAMILY AT BEDSIDE. PT DESAT TO 88% BUT MASK OFF WHEN ENTERING THE ROOM. NC APPLIED AT 4LPM WITH SATS RETURNING TO 94%. ORAL CARE PROVIDED AND DEMONSTRATED USE OF IS WITH PATIENT.
--- NOTE | 2019-03-23 09:50 | History & Physical-Hospitalist ---
History of Present Illness HPI/Chief Complaint Miroslava Prasad is a 73-year-old female with past medical history of hypertension, hyperlipidemia, tobacco abuse, who presented to the [place] [facility] emergency room with chest pain. She reports that she was having bilateral lower rib pain as well as right upper quadrant abdominal pain. She also reported several episodes of belching. She denies any trouble breathing or cough. She denies any fevers or chills. She denies any nausea or vomiting. She denies any dysuria. Source: patient Exam Limitations: no limitations Date Seen 03/23/19 Time Seen by a Provider: 08:00 Attending Physician Toya Houser MD PCP Rod Baugh DO Referring Physician Date of Admission Mar 22, 2019 at 14:15 Home Medications & Allergies Home Medications Reviewed patient Home Medication Reconciliation performed by pharmacy medication reconciliations cutter grind tool technician and/or nursing. Patients Allergies have been reviewed. Allergies Allergies Coded Allergies iodine (Verified Allergy, Unknown, hives, 03/22/19) Past Dhobbuq-Frpevg-Sgjgae Hx Past Med/Social Hx: Reviewed Nursing Past Med/Soc Hx Patient Social History Alcohol Use: Denies Use Recreational Drug Use: No Smoking Status: Current Everyday Smoker Type Used: Cigarettes 2nd Hand Smoke Exposure: Yes Physical Abuse Screen: No Sexual Abuse: No Recent Foreign Travel: No Contact w/other who traveled: No Recent Hopitalizations: No Recent Infectious Disease Expo: No Immunizations Up To Date Date of Pneumonia Vaccine: Mar 22, 2018 Seasonal Allergies Seasonal Allergies: No Past Medical History Surgeries: Hysterectomy, Tonsillectomy Cardiac: High Cholesterol, Hypertension : No Hearing Impairment: Hard of Hearing History of Blood Disorders: No Family History Coronary thrombosis 19 MOTHER G8 SISTER Vascular Disease (Mother had "blood clot in heart"), Other Conditions/Hx (sister GB disease) Review of Systems Constitutional: no symptoms reported EENTM: no symptoms reported Respiratory: no symptoms reported Cardiovascular: chest pain Gastrointestinal: RUQ, heartburn Genitourinary: no symptoms reported Musculoskeletal: no symptoms reported Skin: no symptoms reported Psychiatric/Neurological: No Symptoms Reported Physical Exam Physical Exam Vital Signs Vital Signs - First Documented 03/22/19 03/22/19 11:55 16:00 Temp 97.9 Pulse 84 Resp 20 B/P (MAP) 148/40 (76) Pulse Ox 95 O2 Delivery Room Air Capillary Refill : Less Than 3 Seconds Height, Weight, BMI Height: 4'10.00" Weight: 145lbs. 1.0oz. 65.276757pd; 27.6 BMI Method:Stated General Appearance: No Apparent Distress, WD/WN HEENT: PERRL/EOMI, Pharynx Normal Neck: Normal Inspection, Supple Respiratory: Lungs Clear, Normal Breath Sounds, No Respiratory Distress Cardiovascular: Regular Rate, Rhythm, No Edema, No Murmur Gastrointestinal: Normal Bowel Sounds, Soft, Tenderness, Other (Laparoscopic incision sites well-appearing with minimal surrounding bruising) Extremity: Normal Inspection, Non Tender, No Pedal Edema Neurologic/Psychiatric: Alert, Oriented x3, No Motor/Sensory Deficits Skin: Normal Color, Warm/Dry Lymphatic: No Adenopathy Results Results/Procedures Labs Laboratory Tests 03/22/19 12:26 03/23/19 03:17 Patient resulted labs reviewed. Imaging: Reviewed Imaging Report Assessment/Plan Admission Diagnosis Acute cholecystitis with choledocholithiasis Admission Status: Inpatient Order (span 2 midnights) Reason for Inpatient Admission: Hypertension Hyperlipidemia Tobacco abuse Assessment and Plan Acute cholecystitis Choledocholithiasis CT abdomen revealed acute cholecystitis with choledocholithiasis and dilation of the common bile duct as well as intrahepatic bile ducts Gen. surgery consulted, performed cholecystectomy last night Intraoperative cholangiogram revealed retained common bile duct stone AST/ALT significantly increased this morning 854/753 T bili increased to 1.9 from 0[address] Roberts will begin working on possible transfer for ERCP Hypertension BP low, no antihypertensives needed at this time Tobacco abuse Nicotine patch ordered Diagnosis/Problems Diagnosis/Problems (1) Choledocholithiasis with acute cholecystitis with obstruction Status: Acute (2) Essential hypertension Status: Chronic (3) Tobacco abuse Status: Chronic Clinical Quality Measures DVT/VTE Risk/Contraindication: Risk Factor Score Per Nursin RFS Level Per Nursing on Admit: 4+=Very High TOYA HOUSER MD Mar 23, 2019 09:50
[2019-03-23] MEDS ORDERED: RT-ALBUTEROL/IPRATROPIUM 3 ML (DUONEB) VIAL INH SCH (10:00)
[2019-03-23] MEDS ORDERED: methylPREDNISolone 40 MG/ML (Solu-MEDROL) VIAL IV SCH (12:00)
--- NOTE | 2019-03-23 12:08 | Progress Note - Surgery ---
Subjective Time Seen by a Provider: 11:51 Subjective/Events-last exam Pt seen and examined, denies pain her main complaint is her mouth is dry. Pt wants to go home and eat. Review of Systems General: No Chills, No Night Sweats Pulmonary: No Dyspnea, No Cough Cardiovascular: No: Chest Pain, Palpitations Gastrointestinal: No: Nausea, Vomiting, Abdominal Pain Objective Exam Vital Signs Date Time Temp Pulse Resp B/P (MAP) Pulse Ox O2 Delivery O2 Flow Rate FiO2 03/23/19 10:48 Nasal Cannula 3.00 03/23/19 10:30 95 Nasal Cannula 4.00 03/23/19 10:00 78 14 89/58 (68) 94 Nasal Cannula 4.00 03/23/19 09:14 Nasal Cannula 4.00 03/23/19 09:00 78 10 115/57 (76) 92 OxyMask 6.00 03/23/19 08:15 OxyMask 6.00 03/23/19 08:00 87 13 105/54 (71) 95 OxyMask 6.00 03/23/19 07:00 104 03/23/19 07:00 99.0 03/23/19 07:00 105 13 154/131 (139) 91 OxyMask 6.00 03/23/19 06:00 64 12 104/50 (68) 97 OxyMask 6.00 03/23/19 05:00 71 18 104/47 (66) 95 OxyMask 6.00 03/23/19 04:00 OxyMask 6.00 03/23/19 04:00 78 12 91/53 (66) 96 OxyMask 6.00 03/23/19 03:00 95 15 130/64 (86) 96 OxyMask 6.00 03/23/19 02:00 83 21 92/43 (59) 96 OxyMask 6.00 03/23/19 01:00 76 12 82/41 (55) 96 OxyMask 6.00 03/23/19 01:00 78 03/23/19 00:11 98.6 03/23/19 00:00 OxyMask 6.00 03/23/19 00:00 84 12 83/38 (53) 96 OxyMask 6.00 03/22/19 23:00 84 12 99/41 (60) 96 OxyMask 6.00 03/22/19 22:30 OxyMask 5.00 03/22/19 22:00 82 12 86/49 (61) 96 OxyMask 6.00 03/22/19 21:00 97 14 86/49 (61) 93 OxyMask 10.00 03/22/19 21:00 98.1 03/22/19 21:00 97 14 86/32 (50) 93 OxyMask 6.00 03/22/19 20:45 OxyMask 10.00 03/22/19 20:45 98.7 18 93 OxyMask 6 03/22/19 20:45 OxyMask 6 03/22/19 20:45 96 OxyMask 10.00 03/22/19 20:40 18 94 OxyMask 6 03/22/19 20:35 OxyMask 6 03/22/19 20:30 18 93 OxyMask 6 03/22/19 20:20 OxyMask 6 03/22/19 20:20 18 93 OxyMask 6 03/22/19 20:10 18 94 Nasal Cannula 3 03/22/19 20:05 OxyMask 6 03/22/19 20:00 118 19 142/57 (85) 89 OxyMask 6.00 03/22/19 20:00 118 19 142/53 (82) 89 OxyMask 10.00 03/22/19 20:00 22 94 OxyMask 6 03/22/19 19:50 OxyMask 6 03/22/19 19:50 22 94 OxyMask 6 03/22/19 19:40 20 94 OxyMask 6 03/22/19 19:40 OxyMask 6 03/22/19 19:32 OxyMask 6 03/22/19 19:30 22 95 OxyMask 6 03/22/19 19:25 OxyMask 6 03/22/19 19:20 18 97 OxyMask 6 03/22/19 19:15 OxyMask 6 03/22/19 19:13 18 97 OxyMask 6 03/22/19 19:06 OxyMask 6 03/22/19 19:06 97.5 12 100 OxyMask 6 03/22/19 19:00 89 03/22/19 16:14 99.0 102 21 138/68 95 Room Air 03/22/19 16:00 Room Air 03/22/19 14:51 98.2 94 14 141/57 (20) 95 I & O 03/23/19 07:00 Intake Total 3520 ml Output Total 650 ml Balance 2870 ml Capillary Refill : Less Than 3 Seconds General Appearance: No Apparent Distress (Pt is sitting in bed comfortably on room air with no distress or accessory respiratory muscle use. ), Thin HEENT: PERRL/EOMI; No Moist Mucous Membranes Respiratory: Lungs Clear, Normal Breath Sounds, No Respiratory Distress Cardiovascular: Regular Rate, Rhythm, No Edema, No Murmur Gastrointestinal: normal bowel sounds, non tender, soft, no organomegaly, no p ulsatile mass, hernia (small umbilical) Extremity: No Calf Tenderness, No Pedal Edema Neurologic/Psychiatric: Alert, Oriented x3 Skin: Normal Color, Warm/Dry Results Lab Laboratory Tests 03/22/19 12:26: White Blood Count 9.7, Red Blood Count 3.81L, Hemoglobin 12.3, Hematocrit 37, Mean Corpuscular Volume 98, Mean Corpuscular Hemoglobin 32, Mean Corpuscular Hemoglobin Concent 33, Red Cell Distribution Width 14.0, Platelet Count 215, Mean Platelet Volume 9.0, Neutrophils (%) (Auto) 69, Lymphocytes (%) (Auto) 22, Monocytes (%) (Auto) 6, Eosinophils (%) (Auto) 2, Basophils (%) (Auto) 1, Neutrophils # (Auto) 6.7, Lymphocytes # (Auto) 2.2, Monocytes # (Auto) 0.6, Eosinophils # (Auto) 0.2, Basophils # (Auto) 0.1, Prothrombin Time 12.8, INR Comment 0.9, Activated Partial Thromboplast Time 28, Sodium Level 140, Potassium Level 3.7, Chloride Level 97L, Carbon Dioxide Level 25, Anion Gap 18H, Blood Urea Nitrogen 16, Creatinine 0.90, Estimat Glomerular Filtration Rate > 60, BUN/Creatinine Ratio 18, Glucose Level 165H, Calcium Level 10.6H, Corrected Calcium 10.4H, Magnesium Level 1.4L, Total Bilirubin 0.7, Aspartate Amino Transf (AST/SGOT) 51H, Alanine Aminotransferase (ALT/SGPT) 29, Alkaline Phosphatase 158H, Myoglobin < 21.0, Troponin I < 0.30, Pro-B-Type Natriuretic Peptide 127.5H , Total Protein 7.0, Albumin 4.3, Lipase 34 03/22/19 19:12: Troponin I < 0.028 03/23/19 03:17: White Blood Count 15.1H, Red Blood Count 3.58L, Hemoglobin 11.4L, Hematocrit 35, Mean Corpuscular Volume 99, Mean Corpuscular Hemoglobin 32, Mean Corpuscular Hemoglobin Concent 32, Red Cell Distribution Width 14.4, Platelet Count 182, Mean Platelet Volume 9.6, Neutrophils (%) (Auto) 94H, Lymphocytes (%) (Auto) 3L, Monocytes (%) (Auto) 3, Eosinophils (%) (Auto) 0, Basophils (%) (Auto) 0, Neutrophils # (Auto) 14.2H, Lymphocytes # (Auto) 0.5L, Monocytes # (Auto) 0.4, Eosinophils # (Auto) 0.0, Basophils # (Auto) 0.0, Sodium Level 139, Potassium Level 4.7, Chloride Level 106, Carbon Dioxide Level 22, Anion Gap 11, Blood Urea Nitrogen 15, Creatinine 1.10, Estimat Glomerular Filtration Rate 49, BUN/C reatinine Ratio 14, Glucose Level 183H, Calcium Level 9.1, Corrected Calcium 9.4, Magnesium Level 3.0H, Total Bilirubin 1.9H, Aspartate Amino Transf (AST/SGOT) 854H, Alanine Aminotransferase (ALT/SGPT) 753#H, Alkaline Phosphatase 230H, Total Protein 6.1L, Albumin 3.6, Neutrophils % (Manual) 87, Lymphocytes % (Manual) 2, Monocytes % (Manual) 3, Band Neutrophils 8, Blood Morphology Comment NORMAL, Phosphorus Level 3.8, B-Type Natriuretic Peptide 200.7H, Triglycerides Level 53, Cholesterol Level 120, LDL Cholesterol Direct 57, VLDL Cholesterol 11, HDL Cholesterol 49 Assessment/Plan Assessment/Plan Assessment/Plan Choledochalithiasis - non-obstructed S/P Lap sabrina Elevated LFT's - most likely secondary to IOC, but pt does have Choledochalithiasis Plan is to send pt home and will schedule ERCP as an outpt. Pt told to call my office first thing in am tomorrow and not to eat after midnight. Pt does have some elevation of LFT's but no abdominal pain, wants to go home and I believe this can be done outpt. Pt told to call or go to ER immediately if she starts having any pain. Clinical Quality Measures DVT/VTE Risk/Contraindication: Risk Factor Score Per Nursin RFS Level Per Nursing on Admit: 4+=Very High EASTON HILL DO Mar 23, 2019 12:08
--- NOTE | 2019-03-23 12:10 | Discharge Inst-Surgical ---
Discharge Inst-Surgical Reconcile Patient Problems Problems Reviewed?: No Depart Medication/Instructions New, Converted or Re-Newed RX: Other (Pt has no pain, will not send pain Rx) Patient Instructions Follow up Appt: Make appointment for 1 week. [phone]. Call tomorrow regarding ERCP set up. Instructions: No lifting greater than 20 pounds. No strenuous activity. May shower in 24 hours, no tub bath or soaking. Use incentive spirometer at home as directed. No Smoking Skin/Wound Care: May remove bandages in am. You need to leave the Dermabond on incision it will fall off on it's own. Symptoms to Report: Appetite Changes, Extremity Discoloration, Numbness/Tingling, Swelling Increased, Bleeding Excessive, Eyesight Changes, Pain Increased, Urine Color Change, Constipation(Persistent), Fever over 101 degree F, Pain/Pressure in chest, Urinating Difficulty, Cough Up/Vomit Blood, Heart Beat Irreg/Pounding, Pain/Pressure in jaw, Cramps in feet or legs, Lightheadedness, Pain/Pressure in shoulder, Diarrhea(Persistent), Memory Changes Suddenly, Questions/Concerns, Weight gain consecutive days, Dizziness/Fainting, Nausea/Vomiting, Shortness of Breath, Weight gain over 2 pounds If questions or concerns contact your physician Or seek help at emergency department. Activity Activity as Tolerated: Yes Activity Instructions: Avoid Stress to Incision Driving Instructions: No Driving/Refer to Diet Discharge Diet: Avoid Fatty Foods, Low Fat/Low Cholesterol If Any Problems/Questions/Issu: Contact Your Physician, Go to Emergency Room Skin/Wound Care Infection Signs and Symptoms: Increased Redness, Foul Odor of Wound, Increased Drainage, Skin Itchy or Has a Rash, Increased Swelling, Temperature Above 101 F Bathing Instructions: Shower Stitches/[place]/Dermabond Dis: Dermabond EASTON HILL DO Mar 23, 2019 12:10
[2019-03-23 12:18] LABS: AMYLASE 42 U/L (25-125); LIPASE 25 U/L (8-78)
--- NOTE | 2019-03-23 12:34 | Anesthesia-General Post-Op ---
General Patient Condition Mental Status/LOC: Same as Preop Cardiovascular: Satisfactory Nausea/Vomiting: Absent Respiratory: Satisfactory Pain: Controlled Complications: Absent Post Op Complications Complications None Follow Up Care/Instructions Patient Instructions None needed. Anesthesia/Patient Condition Patient Condition Patient is doing well, no complaints, stable vital signs, no apparent adverse anesthesia problems. No complications reported per nursing. CONI CORONA CRNA Mar 23, 2019 12:34
--- NOTE | 2019-03-23 13:10 | NUR ---
ALL PERSONAL BELONGINGS TAKEN WITH PATIENT AT DISCHARGE.
--- NOTE | 2019-03-23 13:10 | NUR ---
PT DISCHARGED VIA W/C TO PRIVATE VEHICLE TO HOME WITH FAMILY CARE. PT VOICED UNDERSTANDING OF NEED TO F/U WITH DR. HILL IN THE MORNING. FAMILY REPORTS THEY WILL MAKE SURE SHE CALLS IN THE MORNING. PT O2 SATS ON RA 92% AFTER AMBULATING THE THE BATHROOM. SHE DENIES ANY COMPLAINTS.
--- NOTE | 2019-03-23 14:14 | Discharge Summary ---
Discharge Summary Hospital Course Was the Problem List Reviewed?: Yes Problems/Dx: (1) Choledocholithiasis with acute cholecystitis with obstruction Status: Acute (2) Essential hypertension Status: Chronic (3) Tobacco abuse Status: Chronic Hospital Course Date of Admission: Mar 22, 2019 at 14:15 Admission Diagnosis : Choledocholithiasis with acute cholecystitis and obstruction Family Physician/Provider: Rod Herring DO Date of Discharge: 03/23/19 Discharge Diagnosis: Choledocholithiasis with acute cholecystitis and obst ruction Hospital Course: Miroslava Prasad is a 73yoF who presented to [place] [facility] due to chest pain and RUQ pain and was found to have choledocholithiasis and acute cholecystitis. Her LFTs were initially normal. She went to surgery on the day of admission and had an uncomplicated cholecystectomy. An intraoperative cholangiogram showed a retained stone in the common bile duct. Her LFTs the following morning were significantly increased and her bilirubin trended upward. She improved clinically and was discharged with very close follow up with Dr. Roberts to monitor LFTs and schedule an outpatient ERCP to attempt stone removal and possible stent placement. Labs and Pending Lab Test: Laboratory Tests 03/22/19 19:12: Troponin I < 0.028 03/23/19 03:17: White Blood Count 15.1H, Red Blood Count 3.58L, Hemoglobin 11.4L, Hematocrit 35, Mean Corpuscular Volume 99, Mean Corpuscular Hemoglobin 32, Mean Corpuscular Hemoglobin Concent 32, Red Cell Distribution Width 14.4, Platelet Count 182, Mean Platelet Volume 9.6, Neutrophils (%) (Auto) 94H, Lymphocytes (%) (Auto) 3L, Monocytes (%) (Auto) 3, Eosinophils (%) (Auto) 0, Basophils (%) (Auto) 0, Neutrophils # (Auto) 14.2H, Lymphocytes # (Auto) 0.5L, Monocytes # (Auto) 0.4, Eosinophils # (Auto) 0.0, Basophils # (Auto) 0.0, Neutrophils % (Manual) 87, Lymphocytes % (Manual) 2, Monocytes % (Manual) 3, Band Neutrophils 8, Blood Morphology Comment NORMAL, Sodium Level 139, Potassium Level 4.7, Chloride Level 106, Carbon Dioxide Level 22, Anion Gap 11, Blood Urea Nitrogen 15, Creatinine 1.10, Estimat Glomerular Filtration Rate 49, BUN/Creatinine Ratio 14, Glucose Level 183H, Calcium Level 9.1, Corrected Calcium 9.4, Phosphorus Level 3.8, Magnesium Level 3.0H, Total Bilirubin 1.9H, Aspartate Amino Transf (AST/SGOT) 854H, Alanine Aminotransferase (ALT/SGPT) 753#H, Alkaline Phosphatase 230H, B- Type Natriuretic Peptide 200.7H, Total Protein 6.1L, Albumin 3.6, Triglycerides Level 53, Cholesterol Level 120, LDL Cholesterol Direct 57, VLDL Cholesterol 11, HDL Cholesterol 49, Amylase Level 42, Lipase 25 Assessment/Pt Instructions Take medications as prescribed. Follow up with Dr. Roberts tomorrow. You will need to schedule an ERCP. Return if having worsening RUQ pain, fevers, yellowing of the skin, nausea and vomiting, or if you feel like you are getting worse. Discharge Instructions Discharge Diet: No Restrictions, Avoid Fatty Foods, Low Fat/Low Cholesterol Activity as Tolerated: Yes Consultations General surgery Discharge Physical Examination Vital Signs Vital Signs Date Time Temp Pulse Resp B/P (MAP) Pulse Ox O2 Delivery O2 Flow Rate FiO2 03/23/19 12:44 102 18 115/64 92 Room Air 03/23/19 12:00 3.00 03/23/19 07:00 99.0 General Appearance: No Apparent Distress Allergies: Coded Allergies: iodine (Verified Allergy, Unknown, hives, 03/22/19) Copy Copies To 1: ROD HERRING DO Discharge Summary Date of Admission Mar 22, 2019 at 14:15 Date of Discharge Mar 23, 2019 at 13:10 Discharge Date: Mar 23, 2019 Discharge Time: 1315 Admission Diagnosis Acute cholecystitis with choledocholithiasis Consults/Procedures Consulations General surgery Procedures Laparoscopic cholecystectomy with intraoperative cholangiogram Discharge Diagnosis Acute cholecystitis Choledocholithiasis CT abdomen revealed acute cholecystitis with choledocholithiasis and dilation of the common bile duct as well as intrahepatic bile ducts Gen. surgery consulted, performed cholecystectomy last night Intraoperative cholangiogram revealed retained common bile duct stone AST/ALT significantly increased this morning 854/753 T bili increased to 1.9 from 0.7 Continue Jair Roberts will begin working on possible transfer for ERCP Hypertension BP low, no antihypertensives needed at this time Tobacco abuse Nicotine patch ordered (1) Choledocholithiasis with acute cholecystitis with obstruction Status: Acute (2) Essential hypertension Status: Chronic (3) Tobacco abuse Status: Chronic Clinical Quality Measures DVT/VTE Risk/Contraindication: Risk Factor Score Per Nursin RFS Level Per Nursing on Admit: 4+=Very High DON HOUSER MD Mar 23, 2019 14:13
== END 2019-03-23 13:10 | disposition home or self-care (01) | DRG 418 ==
LOC: ER FS 11:57 → 4TH 14:15 → ICU 20:46
PROVIDERS: ADMIT Internal Medicine; ATTEND Internal Medicine
PROC: BF101ZZ Fluoroscopy of Bile Ducts using Low Osmolar Contrast (ICD-10-PCS; 2019-03-22)
PROC: 0FT44ZZ Resection of Gallbladder, Percutaneous Endoscopic Approach (ICD-10-PCS; principal; 2019-03-22 17:21)
DX: K80.63 Calculus of gallbladder and bile duct with acute cholecystitis with obstruction (principal); I10 Essential (primary) hypertension; J44.1 Chronic obstructive pulmonary disease with (acute) exacerbation; J98.11 Atelectasis; R09.02 Hypoxemia; E78.00 Pure hypercholesterolemia, unspecified; H91.90 Unspecified hearing loss, unspecified ear; E78.5 Hyperlipidemia, unspecified; F17.210 Nicotine dependence, cigarettes, uncomplicated
CPT/HCPCS: 36415; 71045; 71046; 74176; 80053; 80061; 82150; 83690; 83735; 83874; 83880; 84100; 84484; 85007; 85025; 85027; 85610; 85730; 87081; 88304; 93005; 93041; 94640; 94664; 96374; 96375